=== PATIENT | male | born 1975 | race Caucasian/White ===

== ENCOUNTER 2016-10-15 07:49 | Emergency (ER) | payer OTHER ==
[~2016-10-15] VITALS: Ht 177.8 cm; Wt 98.6 kg
[2016-10-15] MEDS ORDERED: LIPITOR20 MG PO (07:58)
[2016-10-15] MEDS ORDERED: TYLENOL WITH C1 EACH PO (10:11)
[2016-10-15 10:20] VITALS: BP 146/88
== END 2016-10-15 10:23 | disposition home or self-care (01) ==
LOC: EME 07:49
DX: S20.229A Contusion of unspecified back wall of thorax, initial encounter (principal); S13.9XXA Sprain of joints and ligaments of unspecified parts of neck, initial encounter; V59.50XA Passenger in pick-up truck or van injured in collision with unspecified motor vehicles in traffic accident, initial encounter; E78.5 Hyperlipidemia, unspecified
CPT/HCPCS: 71010; 72040; 72070; 72128; 99281; 99284